=== PATIENT | male | born 1980 | race Caucasian/White ===

== ENCOUNTER 2024-02-06 12:13 | Emergency (ER) | payer OTHER, SELFPAY ==
[2024-02-06 12:16] VITALS: BP 150/91; PULSE 96; TEMP 36.8; O2SAT 98; BMI 35.9
--- NOTE | 2024-02-06 12:24 | PC.NURSE ---
swelling to right eye lid and bottom lid started yesterday
--- NOTE | 2024-02-06 12:27 | ED.EYEPROB1 ---
HPI - Eye Problem General Chief complaint: Eye Problems Stated complaint: EYE PAIN/SWELLING Time Seen by Provider: 02/06/24 12:21 Source: patient Mode of arrival: walk-in History of Present Illness HPI Narrative: 43-year-old male presents for right eye issues. Over the past day he has noticed some redness to the white part of his eye and swelling and redness to his right eyelid. 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 No history of trauma or foreign body. No symptoms in the left eye Related Data Previous Rx's ?Medication ?Instructions ?Recorded cephalexin 500 mg capsule 500 mg PO QID 10 days #40 caps 02/06/24 erythromycin 5 mg/gram (0.5 %) eye 1 applic ophthalmic (eye) Q6H #3.5 02/06/24 ointment grams Allergies Allergy/AdvReac Type Severity Reaction Status Date / Time No Known Drug Allergies Allergy Verified 02/06/24 12:20 Review of Systems ROS Narrative A ten point review of systems is negative except as noted above. Exam Narrative Exam Narrative: Nurses note and vital signs reviewed and patient is not hypoxic. General: The patient appears well and in no apparent distress. Patient is resting comfortably on cart. Skin: Warm, dry, no pallor noted. There is no rash noted. Head: Normocephalic, atraumatic Eye: Left eye is normal. Left conjunctiva is mildly injected. He has erythema and swelling to the right upper eyelid. No specific hordeolum is present, internally or externally. Ears, Nose, Mouth, and Throat: oral mucosa is moist. Nares patent. Cardiovascular: Regular Rate and Rhythm Respiratory: Patient is in no distress, no accessory muscle use Back: non-tender GI: Soft and nontender Musculoskeletal: The patient has no evidence of calf tenderness, no pitting edema, symmetrical pulses noted bilaterally Neurological: Awake and alert Psychiatric: Cooperative Constitutional Vital Signs, click to edit/add: Last Vital Signs Temp 98.3 F 02/06/24 12:16 Pulse 96 H 02/06/24 12:16 Resp 18 02/06/24 12:16 BP 150/91 H 02/06/24 12:16 Pulse Ox 98 02/06/24 12:16 O2 Del Method Room Air 02/06/24 12:16 Course Vital Signs Vital signs: Vital Signs Temperature 98.3 F 02/06/24 12:16 Pulse Rate 96 H 02/06/24 12:16 Respiratory Rate 18 02/06/24 12:16 Blood Pressure 150/91 H 02/06/24 12:16 Pulse Oximetry 98 02/06/24 12:16 Oxygen Delivery Method Room Air 02/06/24 12:16 Temperature 98.3 F 02/06/24 12:16 Pulse Rate 96 H 02/06/24 12:16 Respiratory Rate 18 02/06/24 12:16 Blood Pressure 150/91 H 02/06/24 12:16 Pulse Oximetry 98 02/06/24 12:16 Oxygen Delivery Method Room Air 02/06/24 12:16 MDM - Eye Problem MDM Narrative Medical decision making narrative: The patient will be placed on erythromycin ointment and Keflex and was recommended warm compresses. There is no specific finding of a hordeolum and no suspicion of foreign body. Treatment diagnosis and follow-up were discussed with the patient. Differential Diagnosis Differential diagnosis: Likely corneal abrasion, conjunctivitis and other (Cellulitis) Discharge Plan Discharge Stand Alone Forms: Portal Instructions Chief Complaint: Eye Problems Clinical Impression: Cellulitis Patient Disposition: Home, Self-Care Time of Disposition Decision: 12:26 Condition: Good Mode of Transportation: Private Vehicle Prescriptions / Home Meds: New erythromycin 5 mg/gram (0.5 %) ointment 1 applic ophthalmic (eye) Q6H Qty: 3.5 0RF cephalexin 500 mg capsule 500 mg PO QID 10 Days Qty: 40 0RF Print Language: Azeri Instructions: Cellulitis (ED), Warm Compress or Soak (ED) Referrals: Physician,Non-Staff, MD [Primary Care Provider] - 1 week
== END 2024-02-06 12:51 | disposition home or self-care (01) ==
PROVIDERS: Emergency Provider Emergency Medicine
DX: H00.031 Abscess of right upper eyelid (principal)
CPT/HCPCS: 99283

== ENCOUNTER 2024-12-15 12:23 | Outpatient (OUT) | payer OTHER, SELFPAY ==
--- OUTSIDE RECORDS SUMMARY | 2024-12-06 08:40 | XMS_ITS | Encounter Summary ---
Author Organization [facility] Address [address] [place] [address] Care Team Providers Care Supervisor Model Making Name Role Phone Reuben Mejias MD Primary Care Provider [phone] Christen Tripathi NP Unavailable [phone] Reason for Visit * Reason Comments Back Pain Encounter Details Date Type Department Care Team (Late st Contact Info) Description 12/06/2024 8:40 AM EDT Office Visit [facility] [address] [place] [address] Christen Tripathi, MAILING SPECIALIST [address] [place] [address] Acute midline low back pain without sciatica (Primary Dx); Class 2 severe obesity due to excess calories with serious comorbidity in adult, unspecified BMI (CMS-HCC); Primary hypertension ; Bipolar II disorder ([facility]); RICO (obstructive sleep apnea); Mild episode of recurrent major depressive disorder ; Tobacco dependence Social History Tobacco Use Types Packs/Day Years Used Date Smoking Tobacco: Every Day Cigarettes Smokeless Tobacco: Never Tobacco Cessation:Ready to Q uit: Not Asked; Counseling Given: Not Answered Alcohol Use Standard Drinks/Week Comments Never 0 (1 standard drink = 0.6 oz pur e alcohol) caffine: 1 coffee PHQ-2 Answer Date Recorded Patient Health Questionnaire-2 Score 0 12/06/2024 Sex and Gender Information Value Date Recorded Sex Assigned at Not on file Legal Sex Male 11:50 PM EDT Gender Identity Not on file Sexual Orientation Not on file documented as of this encounter Last Filed Vital Signs Vital Sign Reading Time Taken Comments Blood Pressure 128/88 12/06/2024 8:49 AM EDT Pulse 94 12/06/2024 8:49 AM EDT Temperature 36.7 C (98 F) 12/06/2024 8:49 AM EDT Respiratory Rate 20 12/06/2024 8:49 AM EDT Oxygen Saturation 97% 12/06/2024 8:49 AM EDT Inhaled Oxygen Concentration - - Weight 111 kg (245 lb 12.8 oz) 12/06/2024 8:49 A M EDT Height 170.2 cm (5' 7 ) 12/06/2024 8:49 AM EDT Body Mass Index 38.5 12/06/2024 8:49 AM EDT documented in this encounter Functional Status * Over the past 2 weeks, how often have you been bothered by any of the following problems? Question Answer Date of Assessment Author Little interest or pleasure in doing things Not at all 12/06/2024 9:00 AM EDT NADIRA BRADSHAW Feeling down, depressed, or hopeless Not at all 12/06/2024 9:00 AM EDT NADIRA BRADSHAW Patient Health Questionnaire -2 Score 0 12/06/2024 9:00 AM EDT NADIRA BRADSHAW documented as of this encounter Patient Instructions * Patient Instructions* Christen Tripathi NP - 12/06/2024 8:40 AM EDT Get labs fasting Check xrays, ice to lumbar back area 3-4 times daily, sent in script for anti inflammatory and muscle relaxer Will forward sleep study order to [facility] sleep lab documented in this encounter Progress Notes * Christen Tripathi NP - 12/06/2024 9:21 AM EDTAssociated Problem(s): Tobacco dependence The patient has been advised of the risks of continued smoking: stroke, MS, all forms of cancer, lung disease, and . Options for quitting smoking include: cold turkey, hypnosis, acupuncture, nicotine replacement meds(gum, lozenges, and patches), Buproprion, and Varenicline. At this time pt is encouraged to evaluate their goals for wanting to quit smoking, and reach out toprovider when ready to start this process * Christen Tripathi NP - 12/06/2024 9:20 AM EDTAssociated Problem(s): Class 2 severe obesity due to excess calories with serious comorbidity in adult ([facility]) Discussed with patient their BMI (actual, verses recommended). We have also discussed lifestyle modifications: attempts to perform physical activity as chronic conditions allow, also to monitor dietary intake: increasing protein/fruits/veggies and lowering carb intake (unless contraindicated). Limit sodas, juices, and sugary drinks. * Christen Tripathi NP - 12/06/2024 9:20 AM EDTAssociated Problem(s): Major depressive disorder Continue current meds * Christen Tripathi NP - 12/06/2024 9:20 AM EDTAssociated Problem(s): RICO (obstructive sleep apnea) Has not been using PAP for several years Would like to re visit this, and would like at home study if possible * Christen Tripathi NP - 12/06/2024 9:19 AM EDTAssociated Problem(s): Primary hypertension Please check blood pressure daily and record DASH diet Limit caffeine Take medication as directed Contact office if chest pain, pressure, dizziness, shortness of breath, swelling legs Recommend slow position changes Current med: lisinopril Check labs * LAURO BRADSHAW - 12/06/2024 8:40 AM EDT Lower Back pain- fell Thursday on back about 6ft pt did not got see urgent care or xray. Left Shoulder pain- 2 months ago during a work out Pt takes equal 500mg (pain medication from [facility]) Pt needs prescriptions filled also * Christen Deuce, MAILING SPECIALIST - 12/06/2024 8:40 AM EDT Images from the original note were not included. Mayo Echevarria is a 44 y.o. male presents with chief complaint of Back Pain HPI: Hx RICO; has not wore PAP in over 3 years, and would like to fu to see where things stand Does snore, +fatigue, hx of apnea, +obesity, would like at home study Lower lumbar back pain: was climbing out of a boat, thought he had foot on ladder, and fell about 6feet, no LOC, no neck pain Pain is lower lumbar into tail bone Back Pain This is a new problem. Episode onset: 12/04/24. The problem occurs constantly. The problem has been waxing and waning since onset. The pain is present in the lumbar spine. The quality of the pain is described as aching. The pain does not radiate. The pain is at a severity of 8/10. The pain is moderate. The symptoms are aggravated by position. Pertinent negatives include no chest pain, dysuria, headaches, numbness, paresis, paresthesias, perianal numbness or tingling. Hypertension This is a chronic problem. The current episode started more than 1 year ago. The problem is unchanged. The problem is controlled. Associated symptoms include anxiety and palpitations. Pertinent negatives include no chest pain, headaches, orthopnea, peripheral edema or PND. There are no associated agents to hypertension. Risk factors for coronary artery disease include male gender and obesity. Past treatments include JARED inhibitors. The current treatment provides significant improvement. Depression Visit Type: follow-up Patient presents with the following symptoms: irritability and palpitations. Patient is not experiencing: anhedonia, decreased concentration, depressed mood, excessive worry, insomnia, muscle tension, nervousness/anxiety, suicidal ideas, suicidal planning and thoughts of . Frequency of symptoms: occasionally Severity: mild Sleep per night: 9 hours Sleep quality: non-restorative Compliance with medications: 76-100% Anxiety Presents for follow-up visit. Symptoms include irritability and palpitations. Patient reports no chest pain, decreased concentration, depressed mood, dizziness, excessive worry, insomnia, muscle tension, nervous/anxious behavior or suicidal ideas. Symptoms occur occasionally. The severity of symptoms is mild. The patient sleeps 9 hours per night. The quality of sleep is poor. Compliance with medications is 76-100%. SUBJECTIVE: MEDICATIONS: Current Outpatient Medications Medication Instructions citalopram (CELEXA) 40 mg, Oral, Daily lisinopril 40 mg, Oral, Daily ALLERGIES: Not on File REVIEW OF SYMPTOMS: Review of Systems Constitutional: Positive for irritability. Negative for activity change, appetite change and unexpected weight change. HENT: Negative for ear pain, nosebleeds, sneezing, trouble swallowing and voice change. Eyes: Negative for pain, discharge and visual disturbance. Respiratory: Negative for apnea, chest tightness and wheezing. Cardiovascular: Positive for palpitations. Negative for chest pain, orthopnea, leg swelling and PND. Gastrointestinal: Negative for abdominal distention, blood in stool, constipation and diarrhea. Genitourinary: Negative for decreased urine volume, difficulty urinating, dysuria and hematuria. Musculoskeletal: Positive for back pain. Skin: Negative for color change. Neurological: Negative for dizziness, tingling, tremors, seizures, numbness, headaches and paresthesias. Psychiatric/Behavioral: Positive for depression. Negative for agitation, decreased concentration, hallucinations, self-injury and suicidal ideas. The patient is not nervous/anxious and does not have insomnia. Hematological: Negative for adenopathy. Does not bruise/bleed easily. Endocrine: Negative for cold intolerance, heat intolerance, polydipsia and polyuria. Allergic/Immunologic: Negative for environmental allergies and food allergies. PAST MEDICAL HISTORY No past medical history on file. No past surgical history on file. family history is not on file. OBJECTIVE: Visit Vitals BP 128/88 (BP Location: Right arm, Patient Position: Sitting, BP Cuff Size: Adult long) Pulse 94 Temp 98 ??F (Temporal) Resp 20 Ht 5' 7 Wt 245 lb 12.8 oz SpO2 97% BMI 38.50 kg/m?? Smoking Status Every Day BSA 2.29 m?? Physical Exam Vitals and nursing note reviewed. Constitutional: Appearance: Normal appearance. He is obese. HENT: Head: Normocephalic. Right Ear: External ear normal. Left Ear: External ear normal. Nose: Nose normal. Mouth/Throat: Mouth: Mucous membranes are moist. Pharynx: Oropharynx is clear. Eyes: Extraocular Movements: Extraocular movements intact. Conjunctiva/sclera: Conjunctivae normal. Neck: Vascular: No carotid bruit. Cardiovascular: Rate and Rhythm: Normal rate and regular rhythm. Pulses: Normal pulses. Heart sounds: Normal heart sounds. No murmur heard. Pulmonary: Effort: Pulmonary effort is normal. Breath sounds: Normal breath sounds. Abdominal: General: Bowel sounds are normal. Palpations: Abdomen is soft. There is no mass. Tenderness: There is no abdominal tenderness. There is no guarding. Musculoskeletal: Cervical back: Neck supple. Right lower leg: No edema. Left lower leg: No edema. Comments: Tenderness lower lumbar into tail bone -SLR x2, but does have lower lumbar back pain DTR's 2+ bilat patellar/achilles MMT 5/5 bilat LE Cervical full ROM Lymphadenopathy: Cervical: No cervical adenopathy. Skin: General: Skin is warm and dry. Capillary Refill: Capillary refill takes 2 to 3 seconds. Neurological: General: No focal deficit present. Mental Status: He is alert. Psychiatric: Mood and Affect: Mood normal. Behavior: Behavior normal. Thought Content: Thought content normal. Judgment: Judgment normal. ASSESSMENT AND PLAN: No follow-ups on file. Problem List Items Addressed This Visit RICO (obstructive sleep apnea) Has not been using PAP for several years Would like to re visit this, and would like at home study if possible Primary hypertension ([facility]/HCC) Please check blood pressure daily and record DASH diet Limit caffeine Take medication as directed Contact office if chest pain, pressure, dizziness, shortness of breath, swelling legs Recommend slow position changes Current med: lisinopril Check labs Relevant Medications lisinopril 40 MG tablet Other Relevant Orders CBC and differential Comprehensive metabolic panel Urinalysis with reflex microscopic (clean catch) Microalbumin / creatinine, urine ratio Major depressive disorder (CMS/HCC) Continue current meds Class 2 severe obesity due to excess calories with serious comorbidity in adult (CMS/HCC) - Primary Discussed with patient their BMI (actual, verses recommended). We have also discussed lifestyle modifications: attempts to perform physical activity as chronic conditions allow, also to monitor dietary intake: increasing protein/fruits/veggies and lowering carb intake (unless contraindicated). Limit sodas, juices, and sugary drinks. Relevant Orders Lipid panel TSH Tobacco dependence The patient has been advised of the risks of continued smoking: stroke, MS, all forms of cancer, lung disease, and . Options for quitting smoking include: cold turkey, hypnosis, acupuncture, nicotine replacement meds(gum, lozenges, and patches), Buproprion, and Varenicline. At this time pt is encouraged to evaluate their goals for wanting to quit smoking, and reach out toprovider when ready to start this process Acute midline low back pain without sciatica Relevant Medications naproxen (Naprosyn) 500 MG tablet tiZANidine (Zanaflex) 4 MG tablet Other Relevant Orders XR lumbar spine 2 or 3 views XR sacrum coccyx 2+ views Other Visit Diagnoses Bipolar II disorder (CMS/HCC) Relevant Medications citalopram (CeleXA) 40 MG tablet documented in this encounter Plan of Treatment Upcoming Encounters Date Type Department Care Team (Late st Contact Info) Description 01/05/2025 1:20 PM EDT [facility] [address] [place] [address] Christen Tripathi NP [address] [place] [address] Scheduled Orders Name Type Priority Associated Diagnoses Orde r Schedule CBC and differential Lab Routine Primary hypertension Expected: 12/06/2024 (Approximate), Expires: 12/06/2025 Comprehensive metabolic panel Lab Routine Primary hypertension Expected: 12/06/2024 (Approximate), Expires: 12/06/2025 Lipid panel Lab Routine Class 2 severe obesity due to excess calories with serious comorbidity in adult, unspecified BMI ([facility]) Expected: 12/06/2024 (Approximate), Expires: 12/06/2025 Urinalysis with reflex microscopic (clean catch) Lab Routine Primary hypertension Expected: 12/06/2024 (Approximate), Expires: 12/06/2025 Microalbumin / creatinine, urine ratio Lab Routine Primary hypertension Expected: 12/06/2024 (Approximate), Expires: 12/06/2025 TSH Lab Routine Class 2 severe obesity due to excess calories with serious comorbidity in adult, unspecified BMI ([facility]) Expected: 12/06/2024 (Approximate), Expires: 12/06/2025 XR lumbar spine 2 or 3 views Imaging Routine Acute midline low back pain without sciatica Expected: 12/06/2024 (Approximate), Expires: 12/06/2025 XR sacrum coccyx 2+ views Imaging Routine Acute midline low back pain without sciatica Expected: 12/06/2024 (Approximate), Expires: 12/06/2025 documented as of this encounter Visit Diagnoses Diagnosis Acute midline low back pain without sciatica- Primary Class 2 severe obesity due to excess calories with serious comorbidity in adult, unspecified BMI (CMS-HCC) Primary hypertension Unspecified essential hypertension Bipolar II disorder (HCC) Other bipolar disorders RICO (obstructive sleep apnea) Obstructive sleep apnea (adult) (pediatric) Mild episode of recurrent major depressive disorder Tobacco dependence Tobacco use disorder documented in this encounter Care Teams Supervisor Model Making Relationship Specialty Start Date End Date Reuben Mejias MD [address] [place] [address] PCP - General Family Medicine 12/05/24 Christen Tripathi NP [address] [place] [address] Nurse Practitioner Family Medicine 12/05/24 documented as of this encounter
--- OUTSIDE RECORDS SUMMARY | 2024-12-15 12:25 | XMS_ITS | Encounter Summary ---
Author Organization [facility] Address [address] [place] [address] Care Team Providers Care Ball Fringe Machine Operator Name Role Phone Shaikh NAVIN Lim Primary Care Provider [phone] Reuben Mejias MD Primary Care Provider [phone] Christen Tripathi NP Unavailable [phone] Reason for Visit * Reason Comments Med Refill Encounter Details Date Type Department Care Team (Late Contact Info) Description 01/04/2024 Refill [facility] [address] [place] [phone] Shaikh Lim MD [address] [place] [id number] Essential (primary) hypertension ; Primary hypertension Social History Tobacco Use Types Packs/Day Years Used Date Smoking Tobacco: Never Assessed Sex and Gender Information Value Date Recorded Sex Assigned at Not on file Legal Sex Male 11:50 PM EDT Gender Identity Not on file Sexual Orientation Not on file documented as of this encounter Miscellaneous Notes * Telephone Encounter - Shaikh Raphael MD - 01/04/2024 12:33 PM EDT Approving, but needs appt for additional refills. documented in this encounter Plan of Treatment Upcoming Encounters Date Type Department Care Team (Late Contact Info) Description 01/05/2025 1:20 PM EDT Office Visit [facility] [address] [place] [phone] Christen Tripathi NP [address] [place] [address] documented as of this encounter Visit Diagnoses Diagnosis Essential (primary) hypertension Unspecified essential hypertension Primary hypertension Unspecified essential hypertension documented in this encounter Care Teams Ball Fringe Machine Operator Relationship Specialty Start Date End Date Shaikh Lim MD PCP - General Internal Medicine 07/06/22 12/04/24 Reuben Mejias MD [address] [place] [address] PCP - General Family Medicine 12/05/24 Christen Tripathi NP [address] [place] [phone] Nurse Practitioner Family Medicine 12/05/24 documented as of this encounter
--- OUTSIDE RECORDS SUMMARY | 2024-12-15 12:25 | XMS_ITS | Clinical Summary ---
Author Organization [facility] Healthcare Address [address] [place] [address] Care Team Providers Care Location Analyst Name Role Phone Reuben Mejias MD Primary Care Provider [phone] Christen Tripathi PAVING RAMMER Unavailable [phone] Allergies No known active allergies Medications lisinopril 40 MG tabletIndications :Primary hypertension Take 1 tablet (40 mg) by mouth Daily 90 tablet 5 03/06/20 25 Active citalopram (CeleXA) 40 MG tabletIndications :Bipolar II disorder (HCC) Take 1 tablet (40 mg) by mouth Daily 90 tablet 5 03/06/20 25 Active naproxen (Naprosyn) 500 MG tabletIndications :Acute midline low back pain without sciatica Take 1 tablet (500 mg) by mouth in the morning and 1 tablet (500 mg) before bedtime. Do all this for 15 days. Take with food. 30 tablet 5 12/22/19 25 Active tiZANidine (Zanaflex) 4 MG tabletIndications :Acute midline low back pain without sciatica Take 1 tablet (4 mg) by mouth as needed at bedtime for muscle spasms for up to 10 days 10 tablet 5 12/17/19 25 Active citalopram (CeleXA) 40 MG tabletIndications :Bipolar II disorder (HCC) TAKE 1 TABLET BY MOUTH DAILY 90 tablet 1 4 12/07/19 25 Discontinu ed(Reorder ) lisinopril 40 MG tabletIndications :Essential (primary) hypertension TAKE 1 TABLET BY MOUTH DAILY 90 tablet 4 12/07/19 25 Discontinu ed(Therapy completed) lisinopril 40 MG tabletIndications :Primary hypertension Take 1 tablet (40 mg) by mouth Daily 90 tablet 4 12/07/19 25 Discontinu ed(Reorder ) lisinopril 40 MG tabletIndications :Essential (primary) hypertension Take 1 tablet (40 mg) by mouth Daily 90 tablet 4 12/07/19 25 Discontinu ed(Therapy completed) Active Problems Problem Noted Date Diagnosed Date RICO (obstructive sleep apnea) 12/06/2024 Assessment & Plan (12/06/2024 9:20 AM EDT): Has not been using PAP for several years Would like to re visit this, and would like at home study if possible Primary hypertension 12/06/2024 Assessment & Plan (12/06/2024 9:19 AM EDT): Please check blood pressure daily and record DASH diet Limit caffeine Take medication as directed Contact office if chest pain, pressure, dizziness, shortness of breath, swelling legs Recommend slow position changes Current med: lisinopril Check labs Major depressive disorder 12/06/2024 Assessment & Plan (12/06/2024 9:20 AM EDT): Continue current meds Panic attack 12/06/2024 Class 2 severe obesity due t o excess calories with serious comorbidity in adult 12/06/2024 Assessment & Plan (12/06/2024 9:20 AM EDT): Discussed with patient their BMI (actual, verses recommended). We have also discussed lifestyle modifications: attempts to perform physical activity as chronic conditions allow, also to monitor dietary intake: increasing protein/fruits/veggies and lowering carb intake (unless contraindicated). Limit sodas, juices, and sugary drinks. Tobacco dependence 12/06/2024 Assessment & Plan (12/06/2024 9:21 AM EDT): The patient has been advised of the risks of continued smoking: stroke, AL, all forms of cancer, lung disease, and . Options for quitting smoking include: cold turkey, hypnosis, acupuncture, nicotine replacement meds (gum, lozenges, and patches), Buproprion, and Varenicline. At this time pt is encouraged to evaluate their goals for wanting to quit smoking, and reach out to provider when ready to start this process Acute midline low back pain without sciatica 09/2024 Encounters Date Type Department Care Team Description 12/06/2024 8:40 AM EDT Office Visit [facility] [address] [place] [address] Christen Tripathi NP Acute midline low back pain without sciatica (Primary Dx); Class 2 severe obesity due to excess calories with serious comorbidity in adult, unspecified BMI (CMS-HCC); Primary hypertension ; Bipolar II disorder ([facility]); RICO (obstructive sleep apnea); Mild episode of recurrent major depressive disorder ; Tobacco dependence 12/06/2024 Bamboo flowsheet [facility] [address] [place] [address] Christen Tripathi NP 12/05/2024 Refill [facility] [address] [place] [place] [address] Christen Tripathi NP Primary hypertension ; Bipolar II disorder ([facility]) from Last 3 Months Social History Tobacco Use Types Packs/Day Years [...] on file Sexual Orientation Not on file Last Filed Vital Signs Vital Sign Reading [...] Mass Index 38.5 12/06/2024 8:49 AM EDT Plan of Treatment Upcoming Encounters Date Type Department Care Team (Late st Contact Info) Description 01/05/2025 1:20 PM EDT Office Visit [facility] [address] [place] [address] Christen Tripathi NP [address] [place] [address] Health Maintenance Due Date Last Done Comments CT Colonography 1978 Colonoscopy 1978 Colorectal Cancer Screening 1978 FIT-DNA 1978 FIT 1978 FOBT 1978 Sigmoidoscopy 1978 Influenza Vaccine (Season Ended) 2025 Insurance * Guarantor: Mayo Echevarria Account Type Relation to Patient Date of Phone Billing Address Personal/Family Self 1980 [address] [place] [address] [employer] Care Teams Location Analyst Relationship Specialty Start Date End Date Reuben Mejias MD [address] [place] [address] PCP - General Family Medicine 12/05/24 Christen Tripathi NP [address] [place] [address] Nurse Practitioner Family Medicine 12/05/24
--- OUTSIDE RECORDS SUMMARY | 2024-12-15 12:25 | XMS_ITS | Encounter Summary ---
Author Organization [facility] Address [address] [facility] [place] [address] Care Team Providers Care Asset Coordinator Name Role Phone Shaikh NAVIN Lim Primary Care Provider [phone] Reuben Mejias MD Primary Care Provider [phone] Christen Tripathi NP Unavailable [phone] Encounter Details Date Type Department Care Team (Late st Contact Info) Description 06/23/2023 Refill [facility] [address] [place] [address] Shaikh Lim MD [address] [place] [address] Essential (primary) hypertension Social History Tobacco Use Types Packs/Day Years Used Date Smoking Tobacco: Never Assessed Sex and Gender Information Value Date Recorded Sex Assigned at Not on file Legal Sex Male 11:50 PM EDT Gender Identity Not on file Sexual Orientation Not on file documented as of this encounter Miscellaneous Notes * Telephone Encounter - Shaikh Raphael MD - 06/23/2023 4:45 PM EST Approving, but needs appt for additional refills. documented in this encounter Plan of Treatment Upcoming Encounters Date Type Department Care Team (Late st Contact Info) Description 01/05/2025 1:20 PM EDT Office Visit [facility] [address] [place] [address] Christen Tripathi NP [address] [place] [address] documented as of this encounter Visit Diagnoses Diagnosis Essential (primary) hypertension Unspecified essential hypertension documented in this encounter Care Teams Asset Coordinator Relationship Specialty Start Date End Date Shaikh Lim MD PCP - General Internal Medicine 07/06/22 12/04/24 Reuben Mejias MD [address] [place] [address] PCP - General Family Medicine 12/05/24 Christen Tripathi NP [address] [place] [address] Nurse Practitioner Family Medicine 12/05/24 documented as of this encounter
--- OUTSIDE RECORDS SUMMARY | 2024-12-15 12:25 | XMS_ITS | Encounter Summary ---
Author Organization [facility] Address [address] [facility] [place] [address] Care Team Providers Care Crop Specialist Name Role Phone Reuben Mejias MD Primary Care Provider [phone] Christen Tripathi NP Unavailable [phone] Reason for Visit * Reason Onset Date Comments Med Refill 12/05/2024 Encounter Details Date Type Department Care Team (Late st Contact Info) Description 12/05/2024 Refill [facility] [address] [place] [address] Christen Tripathi, SYSTEMS SECURITY ANALYST [address] [place] [address] Primary hypertension ; Bipolar II disorder (HCC) Social History Tobacco Use Types Packs/Day Years Used Date Smoking Tobacco: Never Assessed PHQ-2 Answer Date Recorded Patient Health Questionnaire-2 Score 0 12/06/2024 Sex and Gender Information Value Date Recorded Sex Assigned at Not on file Legal Sex Male 11:50 PM EDT Gender Identity Not on file Sexual Orientation Not on file documented as of this encounter Functional Status * Over the [...] NADIRA BRADSHAW documented as of this encounter Plan of Treatment Upcoming Encounters Date Type Department Care Team (Late st Contact Info) Description 01/05/2025 1:20 PM EDT Office Visit [facility] [address] [place] [address] Christen Tripathi NP [address] [place] [address] documented as of this encounter Visit Diagnoses Diagnosis Primary hypertension Unspecified essential hypertension Bipolar II disorder (HCC) Other bipolar disorders documented in this encounter Care Teams Crop Specialist Relationship Specialty Start Date End Date Reuben Mejias MD [address] [place] [address] PCP - General Family Medicine 12/05/24 Chirsten Tripathi NP [address] [place] [address] Nurse Practitioner Family Medicine 12/05/24 documented as of this encounter
--- OUTSIDE RECORDS SUMMARY | 2024-12-15 12:25 | XMS_ITS | Encounter Summary ---
Author Organization [facility] Address [address] [facility] [place] [address] Care Team Providers Care Supervisor Rice Milling Name Role Phone Reuben Mejias MD Primary Care Provider Christen Tripathi QUALITY ASSURANCE CLERK Unavailable [phone] Encounter Details Date Type Department Care Team ([facility] Contact Info) Description 12/06/2024 Bamboo flowsheet [facility] [address] [place] [address] Christen Tripathi NP [address] [place] [address] Social History Tobacco Use Types Packs/Day Years Used Date Smoking Tobacco: Every Day Cigarettes Smokeless Tobacco: Never Alcohol Use Standard Drinks/Week Comments Never 0 (1 standard drink = 0.6 oz pur e alcohol) caffine: 1 coffee PHQ-2 Answer Date Recorded Patient Health Questionnaire-2 Score 0 12/06/2024 Sex and Gender Information Value Date Recorded Sex Assigned at Not on file Legal Sex Male 11:50 PM EDT Gender Identity Not on file Sexual Orientation Not on file documented as of this encounter Plan of Treatment Upcoming Encounters Date Type Department Care Team ([facility] Contact Info) Description 01/05/2025 1:20 PM EDT Office Visit [facility] [address] [place] [address] Christen Tripathi NP [address] [place] [address] documented as of this encounter Visit Diagnoses Not on filedocumented in this encounter Care Teams Supervisor Rice Milling Relationship Specialty Start Date End Date Reuben Mejias MD [address] [place] [address] PCP - General Family Medicine 12/05/24 Christen Tripathi NP [address] [place] [address] Nurse Practitioner Family Medicine 12/05/24 documented as of this encounter
--- OUTSIDE RECORDS SUMMARY | 2024-12-15 12:25 | XMS_ITS | Encounter Summary ---
Author Organization [facility] Address [address] [facility] [place] [address] Care Team Providers Care Thresher Broomcorn Name Role Phone Shaikh NAVIN Lim Primary Care Provider [phone] Reuben Mejias MD Primary Care Provider Christen Tripathi MEDICAL RECORDS ADMINISTRATOR Unavailable [phone] Encounter Details Date Type Department Care Team (Late st Contact Info) Description 06/23/2023 Orders Only [facility] [address] [place] [address] Shaikh Lim MD [address] [place] [address] Primary hypertension (Primary Dx) Social History Tobacco Use Types Packs/Day Years [...] 01/05/2025 1:20 PM EDT Office Visit [facility] [address] [place] [address] Christen Tripathi, MARTINEZ [address] [place] [address] documented as of this encounter Visit Diagnoses Diagnosis Primary hypertension- Primary Unspecified essential hypertension documented in this encounter Care Teams Thresher Broomcorn Relationship Specialty Start Date End Date Shaikh Lim MD PCP - General Internal Medicine 07/06/22 12/04/24 Reuben Mejias MD [address] [place] [address] PCP - General Family Medicine 12/05/24 Christen Tripathi NP [address] [place] [address] Nurse Practitioner Family Medicine 12/05/24 documented as of this encounter
--- OUTSIDE RECORDS SUMMARY | 2024-12-15 12:51 | XMS_ITS | CCD ---
Demographics Address [address] [place] [address] Home Phone Mobile Phone Preferred Language en Marital Status Single Restorationism Affiliation Unknown Race White Ethnic Group Unknown Author Organization [facility] Care Team Providers Care Clinical Pharmacy Specialist Name Role Phone Reuben Mejias MD Primary Care Provider [phone] Deuce REACH TRUCK OPERATOR, Christen Unavailable CHRISTEN TRIPATHI Attending Unavailable Medications Current Medications Medication Drug Class(es) Dates Sig (Normalized) Sig (Original) citalopram 40 mg oral tablet (5 sources) Serotonin Reuptake Inhibitor Start: 12-18-2023 End: 03-06-2025 take 1 tablet by mouth once daily citalopram (CeleXA) 40 MG tablet Indications: Bipolar II disorder (CMS/HCC) Take 1 tablet (40 mg) by mouth Daily 90 tablet 12/06/2024 03/06/2025 Active lisinopril 40 mg oral tablet (9 sources) Angiotensin Converting Enzyme Inhibitor Start: 01-04-2024 End: 03-06-2025 take 1 tablet by mouth once daily lisinopril 40 MG tablet Indications: Primary hypertension (CMS/HCC) Take 1 tablet (40 mg) by mouth Daily 90 tablet 12/06/2024 03/06/2025 Active naproxen 500 mg oral tablet (2 sources) Nonsteroidal Anti-inflammatory Drug Start: 12-06-2024 End: 12-21-2024 take 1 tablet by mouth in the morning naproxen (Naprosyn) 500 MG tablet Indications: Acute midline low back pain without sciatica Take 1 tablet (500 mg) by mouth in the morning and 1 tablet (500 mg) before bedtime. Do all this for 15 days. Take with food. 30 tablet 12/06/2024 12/21/2024 Active tiZANidine 4 mg oral tablet (2 sources) Central alpha-2 Adrenergic Agonist Start: 12-06-2024 End: 12-16-2024 tiZANidine (Zanaflex) 4 MG tablet Indications: Acute midline low back pain without sciatica Take 1 tablet (4 mg) by mouth as needed at bedtime for muscle spasms for up to 10 days 10 tablet 12/06/2024 12/16/2024 Active Problems Problem Classification Problem Date Documented Da te Episodic/Chronic Anxiety disorders (3 sources) Panic attack; Translations: [Panic disorder [episodic paroxysmal anxiety]] Onset: 12-06-2024 12-06-2024 Chronic Essential hypertension (5 sources) Essential hypertension; Translations: [Essential (primary) hypertension] Onset: 12-06-2024 12-06-2024 Chronic Mood disorders (7 sources) Major depressive disorder; Translations: [Major depressive disorder, single episode, unspecified] Onset: 12-06-2024 12-06-2024 Chronic Other nutritional; endocrine; and metabolic disorders (5 sources) Severe obesity; Translations: [Class 2 severe obesity due to excess calories with serious comorbidity in adult] Onset: 12-06-2024 12-06-2024 Chronic Residual codes; unclassified (5 sources) Obstructive sleep apnea syndrome; Translations: [Obstructive sleep apnea (adult) (pediatric)] Onset: 12-06-2024 12-06-2024 Chronic Spondylosis; intervertebral disc disorders; other back problems (4 sources) Acute low back pain; Translations: [Acute midline low back pain without sciatica] Onset: 12-06-2024 12-06-2024 Episodic Substance-related disorders (4 sources) Tobacco dependence syndrome; Translations: [Nicotine dependence, unspecified, uncomplicated] Onset: 12-06-2024 12-06-2024 Chronic Vital Signs Date Time Vital Sign Value Performing Clinician Carson benitez 12-06-2024 08:49-0400 Body height 170.2 cm Christen Tripathi REACH TRUCK OPERATOR Work Phone: [facility] 12-06-2024 08:49-0400 Body mass index (BMI) [Ratio] 38.5 kg/m2 Christen Tripathi REACH TRUCK OPERATOR Work Phone: [facility] 12-06-2024 08:49-0400 Body temperature 98.01 [degF] Christen Tripathi REACH TRUCK OPERATOR Work Phone: [facility] 12-06-2024 08:49-0400 Body weight 111.49 kg Christen Higueraz REACH TRUCK OPERATOR Work Phone: [facility] 12-06-2024 08:49-0400 Diastolic blood pressure 88 mm[Hg] Christen Bobholz REACH TRUCK OPERATOR Work Phone: [facility] 12-06-2024 08:49-0400 Heart rate 94 /min Christen Aichholz REACH TRUCK OPERATOR Work Phone: [facility] 12-06-2024 08:49-0400 Respiratory rate 20 /min Christen Aichholz REACH TRUCK OPERATOR Work Phone: [facility] 12-06-2024 08:49-0400 SaO2% (BldA) [Mass fraction] 97 % Christen Bobholz REACH TRUCK OPERATOR Work Phone: [facility] 12-06-2024 08:49-0400 Systolic blood pressure 128 mm[Hg] Christen Aichholz REACH TRUCK OPERATOR Work Phone: [facility] Healthcare Encounters Encounter Date Encounter Type Care Provider Facility Start: 12-06-2024 End: 12-06-2024 Bamboo flowsheet Christen Bobholz REACH TRUCK OPERATOR Work Phone: [facility] Start: 12-06-2024 End: 12-06-2024 Bamboo flowsheet Christen Danaehholz REACH TRUCK OPERATOR Work Phone: [facility] Start: 12-06-2024 End: 12-06-2024 ambulatory CHRISTEN SUMAYAZ Not Available Start: 12-06-2024 End: 12-06-2024 Office outpatient visit 25 minutes Christen Sumayaz REACH TRUCK OPERATOR Work Phone: [facility] Comment on above: Acute midline low ba ck pain without sciatica (Primary Dx); Class 2 severe obesity due to excess calories with serious comorbidity in adult, unspecified BMI (CMS/HCC); Primary hypertension (CMS/HCC); Bipolar II disorder (CMS/HCC); RICO (obstructive sleep apnea); Mild episode of recurrent major depressive disorder (HCC) ([facility]); Tobacco dependence Plan of Treatment Date Care Activity Detail Author Start: 03-06-2025 Influenza vaccination Influenz a Vaccine (Season Ended) [facility] Start: 12-06-2024 End: 12-06-2025 CBC W Auto Differential panel - Blood CBC and differential Lab Routine Primary hypertension (CMS/HCC) Expected: 12/06/2024 (Approximate), Expires: 12/06/2025 [facility] Work Phone: Comment on above: Expected: 12/06/2024 (Approximate), Expires: 12/06/2025 Start: 12-06-2024 End: 12-06-2025 Comprehensive metabolic 2000 panel - Serum or Plasma Comprehensive metabolic panel Lab Routine Primary hypertension (CMS/HCC) Expected: 12/06/2024 (Approximate), Expires: 12/06/2025 [facility] Comment on above: Expected: 12/06/2024 (Approximate), Expires: 12/06/2025 Start: 12-06-2024 End: 12-06-2025 Lipid 1996 panel - Serum or Plasma Lipid panel Lab Routine Class 2 severe obesity due to excess calories with serious comorbidity in adult, unspecified BMI (CMS/HCC) Expected: 12/06/2024 (Approximate), Expires: 12/06/2025 [facility] Comment on above: Expected: 12/06/2024 (Approximate), Expires: 12/06/2025 Start: 12-06-2024 End: 12-06-2025 Microalbumin/Creatinine panel in random Urine Microalbumin / creatinine, urine ratio Lab Routine Primary hypertension (CMS/HCC) Expected: 12/06/2024 (Approximate), Expires: 12/06/2025 [facility] Comment on above: Expected: 12/06/2024 (Approximate), Expires: 12/06/2025 Start: 12-06-2024 End: 12-06-2025 Thyrotropin [Units/volume] in Serum or Plasma TSH Lab Routine Class 2 severe obesity due to excess calories with serious comorbidity in adult, unspecified BMI (CMS/HCC) Expected: 12/06/2024 (Approximate), Expires: 12/06/2025 [facility] Comment on above: Expected: 12/06/2024 (Approximate), Expires: 12/06/2025 Start: 12-06-2024 End: 12-06-2025 Urinalysis complete panel - Urine Urinalysis with reflex microscopic (clean catch) Lab Routine Primary hypertension (CMS/HCC) Expected: 12/06/2024 (Approximate), Expires: 12/06/2025 [facility] Healthcare Comment on above: Expected: 12/06/2024 (Approximate), Expires: 12/06/2025 Start: 12-06-2024 End: 12-06-2025 XR Lumbar spine 2 or 3 Views XR lumbar spine 2 or 3 views Imaging Routine Acute midline low back pain without sciatica Expected: 12/06/2024 (Approximate), Expires: 12/06/2025 [facility] Healthcare Comment on above: Expected: 12/06/2024 (Approximate), Expires: 12/06/2025 Start: 12-06-2024 End: 12-06-2025 XR Sacrum and Coccyx 2 Views XR sacrum coccyx 2+ views Imaging Routine Acute midline low back pain without sciatica Expected: 12/06/2024 (Approximate), Expires: 12/06/2025 [facility] Healthcare Comment on above: Expected: 12/06/2024 (Approximate), Expires: 12/06/2025 Start: 1980 Screening for malign ant neoplasm of colon [facility] Healthcare Payers Date Payer Category Payer Medicaid (Managed Care) MARIALUISA EMMANUEL [id number] 2019 Medicaid [id number] 1980 Unknown [id number] Social History Date Type Detail Facility [facility] Start: 1980 Sex assigned at Not on file [facility] Start: 12-06-2024 Gender identity Not [facility] file [facility] Start: 12-06-2024 [facility] daily [facility] History of tobacco use Cigarette Smoker [facility] Start: 12-06-2024 Tobacco use and exposure Smokeless t obacco non-user [facility] Start: 12-06-2024 Alcoholic beverage intake Life time non-drinker (finding) [facility] Start: 12-06-2024 History of Social function [facility] Start: 12-06-2024 Alcohol Comment caffine: 1 coffee [facility] Functional Status Date Assessment Result Facility 12-06-2024 Patient Health Quest ionnaire 2 item (PHQ-2) [Reported] [facility] History of Present illness Narrative 12-06-2024 Christen Tripathi NP - 12/06/2024 9:21 AM Monse Tripathi NP - 12/06/2024 9:20 AM Monse Tripathi NP - 12/06/2024 9:20 AM Monse Tripathi NP - 12/06/2024 9:20 AM EDT Note Date & Type Note Facility 12-06-2024 History of Presen t illness Narrative Associated Problem(s): Tobacco dependence The patient has been advised of the risks of continued smoking: stroke, CA, all forms of cancer, lung disease, and . Options for quitting smoking include: cold turkey, hypnosis, acupuncture, nicotine replacement meds (gum, lozenges, and patches), Buproprion, and Varenicline. At this time pt is encouraged to evaluate their goals for wanting to quit smoking, and reach out to provider when ready to start this process Associated Problem(s): Class 2 severe obesity due to excess calories with serious comorbidity in adult (CMS/HCC) Discussed with patient their BMI (actual, verses recommended). We have also discussed lifestyle modifications: attempts to perform physical activity as chronic conditions allow, also to monitor dietary intake: increasing protein/fruits/veggies and lowering carb intake (unless contraindicated). Limit sodas, juices, and sugary drinks. Associated Problem(s): Major depressive disorder (CMS/HCC) Continue current meds Associated Problem(s): RICO (obstructive sleep apnea) Has not been using PAP for several years Would like to re visit this, and would like at home study if possible Associated Problem(s): Primary hypertension (CMS/HCC) Please check blood pressure daily and record DASH diet Limit caffeine Take medication as directed Contact office if chest pain, pressure, dizziness, shortness of breath, swelling legs Recommend slow position changes Current med: lisinopril Check labs Lower Back pain- fell Thursday on back about 6ft pt did not got see urgent care or xray. Left Shoulder pain- 2 months ago during a work out Pt takes equal 500mg (pain medication from [facility]) Pt needs prescriptions filled also Images from the original note were not included. Mayo Echeavrria is a 44 y.o. male presents with [...] had foot on ladder, and fell about 6 feet, no LOC, no neck pain Pain is [...] Size: Adult long) Pulse 94 Temp 98 F (Temporal) Resp 20 Ht 5' 7 Wt 245 lb 12.8 oz SpO2 97% BMI 38.50 kg/m Smoking Status Every Day BSA 2.29 m Physical Exam Vitals and nursing note reviewed. [...] at home study if possible Primary hypertension ([facility]) Please check blood pressure daily and record [...] / creatinine, urine ratio Major depressive disorder ([facility]/HCC) Continue current meds Class 2 severe obesity due to excess calories with serious comorbidity in adult ([facility]) - Primary Discussed with patient their BMI (actual, verses recommended). We have also discussed lifestyle modifications: attempts to perform physical activity as chronic conditions allow, also to monitor dietary intake: increasing protein/fruits/veggies and lowering carb intake (unless contraindicated). Limit sodas, juices, and sugary drinks. Relevant Orders Lipid panel TSH Tobacco dependence The patient has been advised of the risks of continued smoking: stroke, CA, all forms of cancer, lung disease, and [...] views Other Visit Diagnoses Bipolar II disorder ([facility]/HCC) Relevant Medications citalopram (CeleXA) 40 MG tablet documented in this encounter [facility] Instructions 12-06-2024 Patient Instructions Note Date & Type Note Facility 12-06-2024 Instructions Christen Tripathi NP - 12/06/2024 8:40 AM EDT Get labs fasting Check xrays, ice to lumbar back area 3-4 times daily, sent in script for anti inflammatory and muscle relaxer Will forward sleep study order to [facility] sleep lab documented in this encounter [facility] Evaluation note Note Date & Type Note Facility Evaluation note Diagnosis Acute midline low back pain without sciatica- Primary Class 2 severe obesity due to excess calories with serious comorbidity in adult, unspecified BMI (CMS/HCC) Primary hypertension (CMS/HCC) Unspecified essential hypertension Bipolar II disorder (CMS/HCC) Other bipolar disorders RICO (obstructive sleep apnea) Obstructive sleep apnea (adult) (pediatric) Mild episode of recurrent major depressive disorder (HCC) (CMS/HCC) Tobacco dependence Tobacco use disorder documented in this encounter [facility] Summary Purpose Family History No Family History Records Found Advance Directives No Advanced Directives Records Found Additional Source Comments Care Teams (unrecognized sec tion and content) Clinical Pharmacy Specialist Relationship Specialty Start Date End Date Reuben Mejias MD [address] [place] [address] PCP - General Family Medicine 12/05/24 Christen Tripathi NP [address] [place] [address] Nurse Practitioner Family Medicine 12/05/24 Clinical Pharmacy Specialist Relationship Specialty Start Date End Date Reuben Mejias MD [address] [place] [address] PCP - General Family Medicine 12/05/24 Christen Tripathi NP [address] [place] [address] Nurse Practitioner Family Medicine 12/05/24 Reason for Visit (unrecogniz ed section and content) Reason Comments Back Pain (unrecognized sect ion and content) No Status Records Found INFORMATION SOURCE (unrecogn ized section and content) DATE CREATED AUTHOR 12/07/2024 [facility] FOR RECORDS PERTAINING TO PATIENTS WHO ARE OR HAVE BEEN ENROLLED IN A CHEMICAL DEPENDENCY/SUBSTANCEABUSE PROGRAM, SOME INFORMATION MAY BE OMITTED. This clinical summary was aggregated from multiple sources. Caution should be exercised in using it in the provision of clinical care. This summary normalizes information from multiple sources, and as a consequence, information in this document may materially change the coding, format and clinical context of patient data. In addition, data may be omitted in some cases. CLINICAL DECISIONS SHOULD BE BASED ON THE PRIMARY CLINICAL RECORDS. [facility] [employer] [facility] provides no warranty or guarantee of the accuracy or completeness of information in this document.
== END 2024-12-15 12:24 | disposition home or self-care (01) ==
LOC: SLEEP 12:23
PROVIDERS: PCP Nurse Practitioner; Visit Provider Nurse Practitioner
DX: G47.33 Obstructive sleep apnea (adult) (pediatric) (principal)
CPT/HCPCS: 95806

== ENCOUNTER 2025-03-29 19:53 | Outpatient (OUT) | payer OTHER, SELFPAY ==
--- OUTSIDE RECORDS SUMMARY | 2025-03-29 19:56 | XMS_ITS | CCD ---
Demographics Address [address] [place] [address] Mobile Phone Preferred Language en Marital Status Single Yarsani Affiliation Unknown Race White Ethnic Group Unknown Author Organization [facility] Care Team Providers Care Crane Chaser Name Role Phone Magalie HOLDEN, Reuben Primary Care Provider Deuce DENTAL HYGIENIST MOBILE COORDINATOR, Christen Unavailable CHRISTEN TRIPATHI Attending Unavailable Medications Current Medications Medication Drug Class(es) Dates Sig (Normalized) Sig (Original) citalopram 40 mg oral tablet (6 sources) Serotonin Reuptake Inhibitor Start: 12-18-2023 End: 03-06-2025 take 1 tablet by mouth once daily citalopram (CeleXA) 40 MG tablet Indications: Bipolar II disorder (HCC) Take 1 tablet (40 mg) by mouth Daily 90 tablet 12/06/2024 03/06/2025 Active lisinopril 40 mg oral tablet (10 sources) Angiotensin Converting Enzyme Inhibitor Start: 01-04-2024 End: 03-06-2025 take 1 tablet by mouth once daily lisinopril 40 MG tablet Indications: Primary hypertension Take 1 tablet (40 mg) by [...] 12/21/2024 Active tiZANidine 4 mg oral tablet (3 sources) Central alpha-2 Adrenergic Agonist Start: 12-06-2024 End: 12-16-2024 tiZANidine (Zanaflex) 4 MG tablet Indications: Acute midline low back pain without sciatica Take 1 tablet (4 mg) by mouth as needed at bedtime for muscle spasms for up to 10 days 10 tablet 12/06/2024 Active Problems Problem Classification Problem Date Documented Da te Episodic/Chronic Anxiety disorders (4 sources) Panic attack; Translations: [Panic disorder [episodic paroxysmal anxiety]] Onset: 12-06-2024 12-06-2024 Chronic Essential hypertension (6 sources) Essential hypertension; Translations: [Essential (primary) hypertension] Onset: 12-06-2024 12-06-2024 Chronic Mood disorders (8 sources) Major depressive disorder; Translations: [Major depressive disorder, single episode, unspecified] Onset: 12-06-2024 12-06-2024 Chronic Other nutritional; endocrine; and metabolic disorders (6 sources) Severe obesity; Translations: [Class 2 severe obesity due to excess calories with serious comorbidity in adult] Onset: 12-06-2024 12-06-2024 Chronic Residual codes; unclassified (6 sources) Obstructive sleep apnea syndrome; Translations: [Obstructive sleep apnea (adult) (pediatric)] Onset: 12-06-2024 12-06-2024 Chronic Spondylosis; intervertebral disc disorders; other back problems (5 sources) Acute low back pain; Translations: [Acute midline low back pain without sciatica] Onset: 12-06-2024 12-06-2024 Episodic Substance-related disorders (6 sources) Tobacco dependence syndrome; Translations: [Nicotine dependence, unspecified, uncomplicated] Onset: 12-06-2024 Resolved: 01-11-2025 12-06-2024 Chronic Vital Signs Date Time Vital Sign Value Performing Clinician Carson benitez 12-06-2024 08:49-0400 Body height 170.2 cm Christen Tripathi NP Work Phone: [facility] 12-06-2024 08:49-0400 Body mass index (BMI) [Ratio] 38.5 kg/m2 Christen Tripathi NP Work Phone: [facility] 12-06-2024 08:49-0400 Body temperature 98.01 [degF] Christen Tripathi NP Work Phone: [facility] 12-06-2024 08:49-0400 Body weight 111.49 kg Christen Aichholz DENTAL HYGIENIST MOBILE COORDINATOR Work Phone: [facility] 12-06-2024 08:49-0400 Diastolic blood pressure 88 mm[Hg] Christen Higueraz DENTAL HYGIENIST MOBILE COORDINATOR Work Phone: [facility] 12-06-2024 08:49-0400 Heart rate 94 /min Christen Bobholz DENTAL HYGIENIST MOBILE COORDINATOR Work Phone: [facility] 12-06-2024 08:49-0400 Respiratory rate 20 /min Christen Davidaz DENTAL HYGIENIST MOBILE COORDINATOR Work Phone: [facility] 12-06-2024 08:49-0400 SaO2% (BldA) [Mass fraction] 97 % Christen Davidaz DENTAL HYGIENIST MOBILE COORDINATOR Work Phone: [facility] 12-06-2024 08:49-0400 Systolic blood pressure 128 mm[Hg] Christen Bobholz DENTAL HYGIENIST MOBILE COORDINATOR Work Phone: [facility] Healthcare Encounters Encounter Date Encounter Type Care Provider Facility Start: 01-11-2025 End: 01-11-2025 Telephone encounter Christen Tripathi DENTAL HYGIENIST MOBILE COORDINATOR Work Phone: [facility] Start: 12-06-2024 End: 12-06-2024 Bamboo flowsheet Christen Rojasholz DENTAL HYGIENIST MOBILE COORDINATOR Work Phone: [facility] Start: 12-06-2024 End: 12-06-2024 Bamboo flowsheet Christen Bobholz DENTAL HYGIENIST MOBILE COORDINATOR Work Phone: [facility] Start: 12-06-2024 End: 12-06-2024 ambulatory CHRISTEN SLIMLilyHOLZ Not Available Start: 12-06-2024 End: 12-06-2024 Office outpatient visit 25 minutes Christen Rojaschipz DENTAL HYGIENIST MOBILE COORDINATOR Work Phone: [facility] Comment on above: Acute midline low ba ck pain without sciatica (Primary Dx); Class 2 severe obesity due to excess calories with serious comorbidity in adult, unspecified BMI ([facility]/HCC); Primary hypertension ([facility]); Bipolar II disorder ([facility]/HCC); RICO (obstructive sleep apnea); Mild episode of recurrent major depressive disorder (HCC) ([facility]/HCC); Tobacco dependence Plan of Treatment Date Care Activity Detail Author Start: 03-06-2025 Influenza vaccination N [facility] Start: 12-06-2024 End: 12-06-2025 CBC W Auto Differential panel - Blood CBC and differential Lab Routine Primary hypertension ([facility]/HCC) Expected: 12/06/2024 (Approximate), Expires: 12/06/2025 [facility] Work Phone: Comment on above: Expected: 12/06/2024 (Approximate), Expires: 12/06/2025 Start: 12-06-2024 End: 12-06-2025 Comprehensive metabolic 2000 panel - Serum or Plasma Comprehensive metabolic panel Lab Routine Primary hypertension (CMS/HCC) Expected: 12/06/2024 (Approximate), Expires: 12/06/2025 [facility] Comment on above: Expected: 12/06/2024 (Approximate), Expires: 12/06/2025 Start: 12-06-2024 End: 12-06-2025 Lipid 1996 panel - Serum or Plasma Lipid panel Lab Routine Class 2 severe obesity due to excess calories with serious comorbidity in adult, unspecified BMI (CMS/HCC) Expected: 12/06/2024 (Approximate), Expires: 12/06/2025 [facility] Comment on above: Expected: 12/06/2024 (Approximate), Expires: 12/06/2025 Start: 12-06-2024 End: 12-06-2025 Microalbumin/Creatinine panel in random Urine Microalbumin / creatinine, urine ratio Lab Routine Primary hypertension ([facility]/HCC) Expected: 12/06/2024 (Approximate), Expires: 12/06/2025 [facility] Comment on above: Expected: 12/06/2024 (Approximate), Expires: 12/06/2025 Start: 12-06-2024 End: 12-06-2025 Thyrotropin [Units/volume] in Serum or Plasma TSH Lab Routine Class 2 severe obesity due to excess calories with serious comorbidity in adult, unspecified BMI (CMS/HCC) Expected: 12/06/2024 (Approximate), Expires: 12/06/2025 [facility] Comment on above: Expected: 12/06/2024 (Approximate), Expires: 12/06/2025 Start: 12-06-2024 End: 12-06-2025 Urinalysis complete panel - Urine Urinalysis with reflex microscopic (clean catch) Lab Routine Primary hypertension (CMS/HCC) Expected: 12/06/2024 (Approximate), Expires: 12/06/2025 [facility] Healthcare Comment on above: Expected: 12/06/2024 (Approximate), Expires: 12/06/2025 Start: 12-06-2024 End: 12-06-2025 XR Lumbar spine 2 or 3 Views XR lumbar spine 2 or 3 views Imaging Routine Acute midline low back pain without sciatica Expected: 12/06/2024 (Approximate), Expires: 12/06/2025 [facility] Healthcare Comment on above: Expected: 12/06/2024 (Approximate), Expires: 12/06/2025 Start: 12-06-2024 End: 12-06-2025 XR Sacrum and Coccyx 2 Views XR sacrum coccyx 2+ views Imaging Routine Acute midline low back pain without sciatica Expected: 12/06/2024 (Approximate), Expires: 12/06/2025 [facility] Healthcare Comment on above: Expected: 12/06/2024 (Approximate), Expires: 12/06/2025 Start: 1980 Screening for malign ant neoplasm of colon [facility] Healthcare Payers Date Payer Category Payer Medicaid (Managed Care) MARIALUISA EMMANUEL [id number] 2019 Medicaid [id number] 1980 Unknown [id number] Social History Date Type Detail Facility Tobacco smoking stat [facility] Tobacco smoking consumption unknown [facility] Start: 1980 Sex assigned at Not on file [facility] Start: 12-06-2024 Gender identity Not on file [facility] Start: 12-06-2024 Tobacco smoking stat [facility] Smokes tobacco daily [facility] History of tobacco use Cigarette Smoker [facility] Start: 12-06-2024 Tobacco use and exposure Smokeless t obacco non-user [facility] Start: 12-06-2024 Alcoholic beverage intake Life time non-drinker (finding) [facility] Start: 12-06-2024 History of Social function [facility] Start: 12-06-2024 Alcohol Comment caffine: 1 coffee [facility] Functional Status Date Assessment Result Facility 12-06-2024 Patient Health Quest ionnaire 2 item (PHQ-2) [Reported] [facility] Telephone encounter Note 01-11-2025 Telephone Encounter - Christen Tripathi NP - 01/11/2025 8:42 AM EDT Note Date & Type Note Facility 01-11-2025 Telephone encount er Note Contact pt, he was to have gotten labs completed prior to this appt, and back xrays etc. I do not see that this has been completed. I do see that he had part of his sleep study and needs second part of things So unless he feels he needs to be seen today, I would recommend that he get his labs and push out the appt another 3-4 weeks [place] [facility] Note 01-11-2025 Telephone Encounter - Christen Tripathi NP - 01/11/2025 8:42 AM EDT Note Date & Type Note Facility 01-11-2025 Miscellaneous Notes Formattin g of this note might be different from the original. Contact pt, he was to have gotten labs completed prior to this appt, and back xrays etc. I do not see that this has been completed. I do see that he had part of his sleep study and needs second part of things So unless he feels he needs to be seen today, I would recommend that he get his labs and push out the appt another 3-4 weeks [place] documented in this encounter [facility] History of Present illness Narrative 12-06-2024 [...] of the risks of continued smoking: stroke, CO, all forms of cancer, lung disease, and [...] at home study if possible Primary hypertension (CMS/HCC) Please check blood pressure [...] of the risks of continued smoking: stroke, CO, all forms of cancer, lung disease, and [...] 40 MG tablet documented in this encounter [facility] Instructions 12-06-2024 Patient Instructions Note Date & Type Note Facility 12-06-2024 Instructions Christen Tripathi NP - 12/06/2024 8:40 AM EDT Get labs fasting Check xrays, ice to lumbar back area 3-4 times daily, sent in script for anti inflammatory and muscle relaxer Will forward sleep study order to [facility] sleep lab documented in this encounter [facility] Healthcare Evaluation note Note Date & Type [...] Care Teams (unrecognized sec tion and content) Crane Chaser Relationship Specialty Start Date End Date Reuben Mejias MD [address] [place] [id number] PCP - General Family Medicine 12/05/24 Christen Tripathi NP [address] [place] [address] Nurse Practitioner Family Medicine 12/05/24 Crane Chaser Relationship Specialty Start Date End Date Reuben Mejias MD [address] [place] [phone] PCP - General Family Medicine 12/05/24 Christen Tripathi NP [address] [place] [address] Nurse Practitioner Family Medicine 12/05/24 Crane Chaser Relationship Specialty Start Date End Date Reuben Mejias MD [address] [place] [phone] PCP - General Family Medicine 12/05/24 Christen Tripathi NP [address] [place] [address] Nurse Practitioner Family Medicine 12/05/24 Reason for Visit (unrecogniz ed section and content) Reason Comments Back Pain (unrecognized sect ion and content) No Status Records Found INFORMATION SOURCE (unrecogn ized section and content) DATE CREATED AUTHOR 12/07/2024 [facility] FOR RECORDS PERTAINING TO [...] BE BASED ON THE PRIMARY CLINICAL RECORDS. [facility] [employer] [facility] provides no warranty or guarantee of the accuracy or completeness of information in this document.
== END 2025-03-29 19:54 | disposition home or self-care (01) ==
PROVIDERS: PCP Nurse Practitioner; Visit Provider Nurse Practitioner
DX: G47.33 Obstructive sleep apnea (adult) (pediatric) (principal)
CPT/HCPCS: 95811